=== PATIENT | male | born 1970 | race Caucasian/White ===

== ENCOUNTER 2020-04-08 11:11 | Emergency (ER) | payer MEDICARE, SELFPAY ==
[2020-04-08 11:13] VITALS: BP 126/97; PULSE 103; RESP 18; TEMP 36.1; O2SAT 98; BMI 34.9
[2020-04-08 11:49] VITALS: BP 127/89; PULSE 97; RESP 14; TEMP 36.4; O2SAT 98
--- NOTE | 2020-04-08 11:55 | RAD_ITS ---
STUDY: X-RAY CHEST REASON FOR EXAM: Male, 50 years old. Cough TECHNIQUE: Single AP portable view of the chest. COMPARISON: None. FINDINGS: The lungs are clear and expanded. There is no demonstrated pleural abnormality. Normal size heart. Normal mediastinum and maryam. Normal visualized pulmonary arteries. Normal visualized aortic arch and descending thoracic aorta. Normal visualized thoracic spine. Normal visualized ribs, clavicles, and shoulders. There is no demonstrated abnormality of the visualized soft tissue structures of the upper abdomen. RAD/Chest 1 View (Portable) IMPRESSION: Normal x-ray examination of the chest. Electronically Signed: Uche Prasad, at 12:09 EST Tel , Service support ,
[2020-04-08 12:19] LABS: Absolute Lymphocyte Count 1.74 X10^3/uL (0.83-4.51); Absolute Neutrophil Count 6.6 X10^3/uL (2.0-7.7); Basophil# 0.03 X10^3/uL; Basophil% 0.3 % (0-1); Eosinophil# 0.14 X10^3/uL; Eosinophils% 1.5 % (0-5); Hematocrit 46.7 % (40-54); Hemoglobin 15.5 g/dL (13.0-16.5); Lymphocyte # 1.74 X10^3/ul (4.0); Lymphocyte % 18.3 % (19-41); Mean Corp Hgb Conc 33.2 g/dL (32-36); Mean Corpuscular Hgb 28.3 pg (27.0-32.0); Mean Corpuscular Volume 85.4 fL (80-94); Mean Platelet Vol. 8.5 fl (6.2-12.0); Monocyte# 0.93 X10^3/uL; Monocyte% 9.8 % (0-10); NRBC Flagged by Analyzer 0 % (0-5); Neutrophil # 6.59 X10^3/uL (2.7-7.7); Neutrophil % 69.1 % (47-70); Platelet Count 245 K/mm3 (150-450); RBC Distribution Width CV 12.3 % (11.6-14.6); RBC Distribution Width SD 38.3 fl (35.1-43.9); Red Blood Count 5.47 M/mm3 (4.6-6.2); White Blood Count 9.5 K/mm3 (4.4-11.0)
[2020-04-08 12:32] LABS: Anion Gap 5 (5-15); BUN 12 mg/dL (7-18); BUN/Creat Ratio 9.6 RATIO (10-20); Calcium,Total 8.6 mg/dL (8.5-10.1); Chloride 104 mmol/L (98-107); Creatinine, Serum 1.25 mg/dL (0.70-1.30); EST Glomerular Filtration Rate 65 mL/min (>60); Est Glom Filt Rate - Afr Amer 78 mL/min (>60); Estimated Creatinine Clearance 65.37 ml/min; Glucose 94 mg/dL (74-106); Sodium Level 137 mmol/L (136-145)
--- NOTE | 2020-04-08 13:33 | ED.DCSUM_ITS ---
History of Present Illness Chief Complaint: Fatigue Informant: Patient Onset: Days Context: Gradual Onset Timing: Continuous Narrative: Patient is a 50-year-old male that denies any significant past medical history presenting with continued symptoms of headache, myalgias, and cough. He has had some intermittent fevers. Symptoms been going on for 10 days. Has had a mild productive cough. He states has had some intermittent fevers but not consistently. He has had some myalgias especially in his head and his back. No vision changes. No nausea or vomiting but has had some mild intermittent diarrhea. Has had associated sore throat. His and children are also sick but they seem to improve and get better. I states he is active feeling better the past few days but then started to feel worse again today which is why he decided come in to be evaluated further. No other complaints at home. Patient does work as a application systems architect Past Medical History - Allergies and Home Meds Allergies/Adverse Reactions: Allergies No Known Allergies Allergy (Verified 04/08/20 11:16) Primary Care Physician: Care Physician,No Primary [Primary Care Provider] - Past Medical History: None Surgical History: noncontributory Lives: Spouse/ Significant Other, With Family Smoking Status: Never smoker Review of Systems General: Reports: Chills, Fever, Malaise. Denies: Sweats Eyes: Denies: Visual changes - bilaterally, Diplopia ENT: Reports: Sore throat. Denies: Bilateral ear pain, Rhinorrhea Cardiovascular: Denies: Chest pain, Palpitations Respiratory: Reports: Cough. Denies: Dyspnea, Dyspnea on exertion Gastrointestinal: Reports: Diarrhea. Denies: Abdominal pain, Nausea, Vomiting, Melena, Hematochezia Genitourinary: Denies: Dysuria, Hematuria, Frequency Musculoskeletal: Reports: Myalgias, Back pain. Denies: Extremity Pain Skin: Denies: Rash, Wounds Neurological: Reports: Headache. Denies: Weakness, Numbness Physical Exam Vital Signs/Narrative: Vital Signs Temp Pulse Resp BP Pulse Ox 04/08/20 11:49 97.6 F L 97 14 127/89 H 98 04/08/20 11:13 97.0 F L 103 H 18 126/97 H 98 Inital Vital Signs reviewed: Yes General: Well nourished, Well developed, No Acute Distress Head: Normocephalic, Atraumatic Eyes: Perrl, EOMI ENT: Moist mucous membranes, No rhinorrhea, TM's clear Neck: Supple, Nontender, No lymphadenopathy Cardiovascular: Regular rate, Regular rhythm, No murmurs Respiratory: No distress, Chest nontender, - - Very subtle crackle at the base of the right lung Abdomen: Soft, Nontender, Nondistended, Normal bowel sounds Back: Nontender, Normal Inspection Extremities: Nontender, No edema Skin: Normal color, No rash Neurological: Alert, Oriented x3, Cranial nerves II-XII grossly intact, Normal Strength, Normal Sensation Psychological: Normal affect, Normal Mood Diagnostic/Tx/Re-eval Chest X-Ray - ED: 1 View, Read by ED Physician, Read by Radiologist, No Acute Disease Clinical Impression(s) from Imaging Studies Chest X-Ray 04/08/20 11:55 IMPRESSION: Normal x-ray examination of the chest. Electronically Signed: Uche Prasad, at 12:09 EST Tel , Service support , Laboratory Data 04/08/20 04/08/20 04/08/20 11:40 11:40 11:40 WBC 9.5 RBC 5.47 Hgb 15.5 Hct 46.7 MCV 85.4 MCH 28.3 MCHC 33.2 RDW Std Deviation 38.3 RDW Coeff of John 12.3 Plt Count 245 MPV 8.5 Immature Gran % (Auto) 1.000 H Neut % (Auto) 69.1 Lymph % (Auto) 18.3 L [place] % (Auto) 9.8 Eos % (Auto) 1.5 Baso % (Auto) 0.3 Absolute Neuts (auto) 6.6 Absolute Lymphs (auto) 1.74 Nucleated RBC % 0 Sodium 137 Potassium 4.0 Chloride 104 Carbon Dioxide 28.0 Anion Gap 5 BUN 12 Creatinine 1.25 Estim Creat Clear Calc 65.37 Est GFR (MDRD) Af Amer 78 Est GFR (MDRD) Non-Af 65 BUN/Creatinine Ratio 9.6 L Glucose 94 Lactic Acid 2.0 Calcium 8.6 - Medical Decision Making Patient evaluated for flulike symptoms. Given the current pandemic and his presentation I have a high suspicion for COVID-19 infection. He is well- appearing with normal vital signs. He is not have any pneumonia or acute infi ltrate on his chest x-ray. He has a very mild basilar crackle on the right but otherwise has a normal physical exam. His Covid test is pending. Patient is instructed to continue symptomatic treatment including Tylenol and ibuprofen. He is counseled this time is not hypoxic and does not require admission, steroids or Plaquenil. He is counseled on return precautions. He verbalizes agreement understand this plan. He will continue to quarantine for the full 14 days or longer if he still feeling unwell. He is encouraged to follow-up with his primary care doctor. ED Disposition - Plan for ED Patient: Disposition: Home or Assisted Living Diagnosis: Suspected COVID-19 virus infection Instructions: ED Viral Syndrome Referrals: Care Physician,No Primary [Primary Care Provider] - Additional Instructions: Alternate Tylenol and ibuprofen as needed for aches and pains. Drink plenty of fluids. Return the emergency room with any worsening shortness of breath.
[2020-04-08 13:45] VITALS: BP 122/67; PULSE 69; RESP 15; O2SAT 98
== END 2020-04-08 13:46 | disposition home or self-care (01) ==
PROVIDERS: Emergency Provider Emergency Medicine
DX: Z20.828 Contact with and (suspected) exposure to other viral communicable diseases (principal)
CPT/HCPCS: 71045; 80048; 83605; 85025; 87635; 99284; A4216; U0003